=== PATIENT | female | born 1955 | race Caucasian/White ===

== ENCOUNTER → 2016-06-10 | Outpatient (CLI) | payer MEDICAID ==
[~2016-06-10] MED LIST: CAL-CITRATE PLU1 TAB PO; CLARITIN 10MG T10 MG PO; FLUTICASONE 50M16 GM; K-EFFERVESCENT25 MEQ PO; MAXZIDE 25 MG-31 TAB; METOPROLOL SUCC25 M1 PO; NIFEDIPINE XL 330 MG PO; OCUVITE1 TA1 PO; POTASSIUM CHLO10 ME3 PO; URSODIOL250 MG; URSODIOL300 M1 PO
[2016-06-10 09:59] LABS: HEMOGLOBIN 12.5 g/dL (12.2-16.2); LYMPH # 0.7 K/mm3 (0.7-4.5)
[2016-06-10 13:04] LABS: NEUTROPHILS 64 % (42-76)
[2016-06-11 08:46] LABS: Iron 44 ug/dL (27-139); Iron Saturation 13 % (15-55); UIBC 290 ug/dL (118-369)
== END ==
LOC: LAB 09:21
PROVIDERS: Internal Medicine
DX: K76.6 Portal hypertension (principal)

== ENCOUNTER → 2016-10-28 | Outpatient (CLI) | payer MEDICAID ==
[2016-10-28 09:49] LABS: HEMOGLOBIN 12.3 g/dL (12.2-16.2)
[2016-10-28 09:52] LABS: LYMPH # 0.6 K/mm3 (0.7-4.5)
[2016-10-28 11:21] LABS: BUN 16 mg/dL (7-18)
[2016-10-28 11:44] LABS: GFR (ESTIMATED) 63 ML/MIN (59-)
[2016-10-28 11:52] LABS: NEUTROPHILS 36 % (42-76)
[2016-10-29 05:40] LABS: AFP, Tumor Marker 3.3 ng/mL (0.0-8.3)
== END ==
LOC: LAB 09:32
PROVIDERS: Nurse Practitioner
DX: K74.3 Primary biliary cirrhosis (principal); R16.1 Splenomegaly, not elsewhere classified; D61.818 Other pancytopenia